=== PATIENT | male | born 1990 | race Caucasian/White ===

== ENCOUNTER 2017-01-18 17:25 | Emergency (ER) | payer MEDICARE, OTHER ==
[2017-01-18 19:19] LABS: Hematocrit 43.8 % (42.0-52.0); Hemoglobin 14.4 gm/dL (13.5-18.0); Mean Cell Volume 86.2 fl (78-100); Mean Corpuscular Hemoglobin 28.3 pg (27-31); Mean Corpuscular Hgb Conc 32.9 g/dl (32-36); Neutrophil # 2.4 K/mm3 (1.3-6.0); Neutrophil % 47.4 % (42-75.0); Platelet Count 350 K/mm3 (150-450); Red Blood Count 5.08 M/mm3 (4.7-6.0); Red Cell Distribution Width 13.2 % (11.5-14.0)
[2017-01-18] MEDS ORDERED: KETOROLAC TROMETHAMINE 60 MG/2 ML VIAL IM ONE ×2 (19:37→20:12)
[2017-01-18 19:42] LABS: Albumin * 3.6 gm/dl (3.4-5.0); Anion Gap 12.4 mmol/L (6.8-13.8); Bilirubin, Total 0.2 mg/dL (0.0-1.1); Ca. Corrected For Albumin 8.5 mg/dL (8.4-10.2); Calcium * 8.5 mg/dL (7.9-10.9); Carbon Dioxide 28.5 mmol/L (24-32.6); Potassium 3.9 mmol/L (3.4-4.6); Total Protein 7.8 gm/dL (6.2-8.2); Uric Acid 8.6 mg/dL (2.6-7.2)
--- NOTE | 2017-01-18 19:47 | ERNOTE ---
Lower Extremity HPI - Narrative Date of Service: 01/18/17 - General Lower Extremities Pain: foot: right Time Seen by Provider: 01/18/17 18:55 - Immun/Allergies/Home Medications Allergies/Adverse Reactions: Allergies Allergy/AdvReac Type Severity Reaction Status Date / Time divalproex sodium AdvReac Verified 01/18/17 17:39 [From Depakote] quetiapine fumarate AdvReac Verified 01/18/17 17:39 [From Seroquel] Home Medications: HOME MEDICATIONS predniSONE [Prednisone] 3 tab PO DAILY #9 tab 01/18/17 [Last Taken Unknown] - History of Present Illness Narrative: Pt. comes in with c/o R lateral foot pain for three days. Pt. denies any specific injury, numbness, tingling, SOB, CP, NVD, or any other symptoms. Pt. denies any chronic illnesses but does stae that occasionally his BP will be high and he has had gout in the past. Review of Systems - Review of Systems Constitutional: Present: no symptoms reported. Absent: recent illness, fever, chills, weakness, fatigue, malaise EYE: Present: no symptoms reported ENT: Present: no symptoms reported Respiratory: Present: no symptoms reported. Absent: shortness of breath, cough , wheezing, other Cardiology: Present: no symptoms reported. Absent: chest pain, palpitations, edema Gastrointestinal/Abdominal: Present: no symptoms reported. Absent: nausea, vomiting, diarrhea, abdominal pain Musculoskeletal: Present: joint pain - R foot. Absent: back pain Skin: Present: no symptoms reported Neurological: Present: no symptoms reported. Absent: headache, dizziness/light- headedness, numbness, tingling All Other Systems: All systems neg except as marked - Patient's Past Medical History Patient History - Medical: No pertinent hx Patient History - Cardiac/Respiratory: No pertinent hx Patient History - Cancer: No Hx of Cancer Patient History - Surgical Procedures: No surgical history Patient History - Other: None - Social History Living Situations: home Psych History: No pertinent hx Alcohol Use: none Drug Use: none Physical Exam - Physical Exam General Appearance: Present: wd/wn, alert, no apparent distress Eye Exam: Normal inspection: bilateral, PERRL: bilateral, EOMI: bilateral Ears, Nose, Throat: Present: normal ENT inspection, normal pharynx Neck: Present: normal inspection, nontender. Absent: lymphadenopathy (R), lymphadenopathy (L) Respiratory: Present: no respiratory distress, normal breath sounds, no accessory muscle use, chest nontender, lungs clear Cardiovascular/Chest: Present: regular rate, rhythm, no murmur, normal peripheral pulses Gastrointestinal/Abdominal: Present: normal bowel sounds Extremity Exam: Present: normal range of motion, joint redness - R lateral foot , joint swelling - R foot Neurological Exam: Present: alert, oriented, normal mood/affect, no motor/ sensory deficits Skin Exam: Present: normal color, warm/dry. Absent: pallor, skin rash ED Progress - Results and Orders Patient's Lab Results:: I have reviewed the patient's lab results. - Vital Signs Patient's Vital Signs:: I have reviewed the patient's vital signs. Vital Signs: Vital Signs 01/18/17 17:33 Temperature 36.0 C L Pulse Rate 90 Respiratory 12 Rate Blood Pressure 155/70 O2 Sat by Pulse 92 Oximetry - Progress/Reassessment Chief Complaint: Foot Injury/Pain Progress:: Improved Departure Clinical Impression: Gout Qualifiers: Gout site: foot Gout etiology: unspecified cause Laterality: right Chronicity: acute Qualified Code(s): M10.9 - Gout, unspecified - Departure Disposition: Home self-care Condition: Good Instructions: Low-Purine Diet, Gout, [id number] Additional Instructions: Please follow up with primary provider of your choice in 2-3 days. Prescriptions: predniSONE [Prednisone] 3 tab PO DAILY #9 tab
--- OUTSIDE RECORDS SUMMARY | 2017-01-18 20:09 | XMS REPORT | Continuity of Care Document ---
:1990 Author Organization [facility] ([facility]) Address [place] [address] Phone [phone] Care Team Providers Name Role Phone Saw Wall Primary Care Provider [phone] Source Comments This disclosure is being made pursuant to the Care Everywhere program, applicable federal and state laws, and may not contain all informaitonavailable regarding this patient.[facility] ([facility]) Active Allergies and Adverse Reactions Allergen Noted Date Severity Reactions Comments Divalproex 03/26/2010 Unknown Quetiapine 03/26/2010 Unknown Current Medications Prescription Sig. Disp. Refills Start Date End Date Status carBAMazepine Take 1 Tab by mouth 3 90 Tab 0 03/28/2010 Active (TEGRETOL) 200 mg times daily. tablet Indications: Aggression. amphetamine-dextroamph Take 1 Tab by mouth 60 Tab 0 03/28/2010 Active etamine (ADDERALL) 10 every morning and at mg tablet noon. Indications: Attention-Deficit Hyperactivity Disorder citalopram (CELEXA) 40 Take 1.5 Tabs by 45 Tab 0 03/28/2010 Active mg tablet mouth daily. Indications: Depression haloperidol (HALDOL) 1 Take 1 Tab by mouth 30 Tab 0 03/28/2010 Active mg tablet at bedtime. Indications: Aggressive Behavior traZODone (DESYREL) Take 1 Tab by mouth 30 Tab 0 03/28/2010 Active 100 mg tablet at bedtime. Indications: Insomnia Active Problems Problem Noted Date Bipolar affective disorder 03/26/2010 ADHD (attention deficit hyperactivity disorder) 03/26/2010 ODD (oppositional defiant disorder) 03/26/2010 Depression 03/26/2010 Overview: He has been seen by a mental illness professional since childhood. He is currently seeing a psychiatrist in [place] whose name he does not remember. He wsa hospitalized once in 2007 for 7 days [facility] for anger problems. As a young adolescent he made one suicidal gesture of wrapping a t-shirt around his throat without the intent of killing himself. He has had no other suicide attempts. He has been diagnosed with BPAD, ADHD, ODD, and MDD. He has taken [place], Haldol, Tegretol, trazodone, depakote (caused amnesia), Seroquel (caused amnesia), and Ritalin (caused nausea). Social History Tobacco Use Types Packs/Day Years Used Date Never Smoker Alcohol Use Drinks/Week oz/Week Comments No Last Filed Vital Signs Vital Sign Reading Time Taken Blood Pressure 143/64 03/29/2010 9:00 AM CDT Pulse 69 03/29/2010 9:00 AM CDT Temperature 36 C (96.8 F) 03/29/2010 9:00 AM CDT Respiratory Rate 16 03/29/2010 9:00 AM CDT Height 1.755 m (5' 9.09") 03/26/2010 10:34 AM CDT Weight 117.3 kg (258 lb 9.6 oz) 03/29/2010 9:00 AM CDT Body Mass Index 38.08 03/29/2010 9:00 AM CDT Oxygen Saturation 97% 03/26/2010 6:01 AM CDT Plan of Care Health Maintenance Due Date Last Done Comments Hepatitis B Vaccine (1 of 3 - Primary Series) 1992 HPV Vaccine (1 of 3 - Male 3 Dose Series) 2003 Tdap Vaccine 2003 Lipid Disorder Screening 2010 MMR Vaccine 2010 Td Vaccine 2010 Varicella Vaccine (1 of 2 - Adult - No Evidence of 2010 Immunity) Influenza Vaccine: Seasonal (#1) 05/04/2016 Results from Last 3 Months Not on file
[2017-01-18] MEDS ORDERED: METHYLPREDNISOLONE ACETATE 80 MG/ML VIAL IM ONE (20:18)
[2017-01-18] MEDS ORDERED: METHYLPREDNISOLONE ACETATE 80 MG/ML VIAL ONE (20:23)
[2017-01-18 21:03] VITALS: BP 146/74
== END 2017-01-18 20:36 | disposition home or self-care (01) ==
LOC: ER 17:25
DX: M10.9 Gout, unspecified (principal)